=== PATIENT | female | born 1950 | race Caucasian/White ===

== ENCOUNTER 2018-05-20 22:05 | Inpatient (IN) | payer OTHER ==
[~2018-05-20] VITALS: Ht 152.4 cm; Wt 78.2 kg
[~2018-05-20 22:05] MED LIST: BENADRYL25 MG PO; CALCIUM 600 +1 EAC9 PO; COREG3.125 M1 PO; IBUPROFEN200 M1 PO; IRON325 M1 PO; LIPITOR10 MG PO; MAGNESIUM250 MG PO; TYLENOL ARTHRI650 MG PO
[2018-05-21 10:40] VITALS: BP 131/85
[2018-05-21 17:22] VITALS: BP 141/83
[2018-05-21 17:42] LABS: HEMATOCRIT 36.8 % (36.0-46.0); HEMOGLOBIN 12.4 G/DL (11.9-15.5); MCV 92.7 FL (83-99)
[2018-05-21 20:09] VITALS: BP 134/63
[2018-05-21 21:58] VITALS: BP 117/57
[2018-05-22 00:15] VITALS: BP 105/60
[2018-05-22 04:20] VITALS: BP 94/57
[2018-05-22 06:18] LABS: CHLORIDE 99 MEQ/L (99-109); CREATININE 0.8 MG/DL (0.6-1.3); GFR ESTIMATE (CALCULATED) > 59 mL/min/; GLUCOSE 110 mg/dL (70-99); POTASSIUM 4.3 MEQ/L (3.7-5.4); SODIUM 131 MEQ/L (136-147); UREA NITROGEN (BUN) 7 mg/dL (9-23)
[2018-05-22 08:14] VITALS: BP 110/53
[2018-05-22 11:56] VITALS: BP 113/54
[2018-05-22 15:36] VITALS: BP 107/59
[2018-05-22 20:33] VITALS: BP 121/58
[2018-05-23 00:25] VITALS: BP 118/70
[2018-05-23 04:30] VITALS: BP 118/67
[2018-05-23 08:45] VITALS: BP 119/60
[2018-05-23] MEDS ORDERED: OXYCODONE HCL5 MG PO (10:20)
[2018-05-23] MEDS ORDERED: CELECOXIB200 MG PO (10:20)
[2018-05-23] MEDS ORDERED: ELIQUIS2.5 MG PO (10:20)
[2018-05-23 12:09] VITALS: BP 109/65
[2018-05-23 15:48] VITALS: BP 107/67
[2018-05-23 18:31] LABS: CHLORIDE 102 MEQ/L (99-109); CREATININE 0.9 MG/DL (0.6-1.3); GFR ESTIMATE (CALCULATED) > 59 mL/min/; GLUCOSE 108 mg/dL (70-99); POTASSIUM 3.7 MEQ/L (3.7-5.4); SODIUM 136 MEQ/L (136-147); UREA NITROGEN (BUN) 9 mg/dL (9-23)
[2018-05-23 20:23] VITALS: BP 105/55
[2018-05-24] VITALS: BP 128/61
[2018-05-24 04:21] VITALS: BP 100/59
[2018-05-24 08:12] VITALS: BP 131/59
[2018-05-24] MEDS ORDERED: KEFLEX500 MG PO (10:47)
[2018-05-24 12:00] VITALS: BP 109/55
== END 2018-05-24 13:25 | DRG 470 ==
LOC: ENRESERV 22:05 → 2SOUTH 05-21 10:02 → 3WEST 05-21 10:02 → 2SOUTH 05-21 11:59 → CANRESERV 05-21 14:49 → ENRESERV 05-21 14:49 → 3WEST 05-21 16:52
PROVIDERS: Orthopaedic Surgery Sports Medicine; Physician Assistant
PROC: 0SRC0J9 Replacement of Right Knee Joint with Synthetic Substitute, Cemented, Open Approach (ICD-10-PCS; principal; 2018-05-21)
DX: M17.11 Unilateral primary osteoarthritis, right knee (principal); E87.1 Hypo-osmolality and hyponatremia; L76.82 Other postprocedural complications of skin and subcutaneous tissue; L03.115 Cellulitis of right lower limb; Y83.8 Other surgical procedures as the cause of abnormal reaction of the patient, or of later complication, without mention of misadventure at the time of the procedure; I10 Essential (primary) hypertension; E78.5 Hyperlipidemia, unspecified
CPT/HCPCS: 36415; 71045; 73560; 80048; 85014; 85018; 86850; 86900; 86901; 93971; C1713; J0690; J1170; J1885; J2250; J2405; J2795; J3010; J7050; J7643